=== PATIENT | female | born 1970 | race Caucasian/White ===

== ENCOUNTER 2019-12-10 21:03 | Emergency (ER) | payer OTHER ==
[~2019-12-10] VITALS: Ht 175.3 cm; Wt 56.7 kg
[2019-12-10 21:26] LABS: URINE BILIRUBIN NEGATIVE (Negative); URINE BLOOD NEGATIVE (Negative); URINE CLARITY CLEAR; URINE COLOR YELLOW; URINE GLUCOSE-RANDOM NEGATIVE (Negative); URINE KETONES NEGATIVE (Negative); URINE LEUKOCYTES-REFLEX NEGATIVE (Negative); URINE NITRITE-REFLEX NEGATIVE (Negative); URINE PROTEIN NEGATIVE (Negative); URINE UROBILINOGEN 0.2 E.U./dl (0.2-1.0)
[2019-12-10 21:35] LABS: ABSOLUTE EOSINOPHILS 0.1 thou/uL (0.0-0.7); ABSOLUTE LYMPHOCYTES 1.8 thou/uL (0.8-5.3); ABSOLUTE MONOCYTES 1.3 thou/uL (0.0-1.2); ABSOLUTE NEUTROPHILS 6.9 thou/uL (1.6-8.1); BASOPHILS 0.5 %; HEMATOCRIT 39.5 % (37.0-47.0); HEMOGLOBIN 13.8 gm/dL (12.0-15.0); LYMPHOCYTES 17.9 %; MCH 32.3 pg (26.0-34.0); MCHC 35.1 g/dL (28.0-37.0); MCV 92.2 fL (80.0-100.0); MONOCYTES 13.1 %; MPV 6.7 fl. (7.2-11.1); NUCLEATED RBCS 0 /100WBC; PLATELET COUNT* 282 thou/uL (150-400); POLYS 67.5 %; RBC 4.28 mil/uL (4.20-5.00); WBC 10.2 thou/uL (4.0-11.0)
[2019-12-10 21:41] LABS: CALCIUM 8.5 mg/dL (8.5-10.1); CREATININE 0.9 mg/dL (0.6-1.3); POTASSIUM 3.4 mmol/L (3.5-5.1)
[2019-12-10 21:53] LABS: ALBUMIN 3.4 g/dL (3.4-5.0); TOTAL BILIRUBIN 0.5 mg/dL (<0.1-1.0); TOTAL PROTEIN 7.5 g/dL (6.4-8.2)
[2019-12-10] MEDS ORDERED: IBUPROFEN 800800 M1 PO (23:11)
[2019-12-10] MEDS ORDERED: BACTRIM DS TAB1 EAC1 PO (23:11)
[2019-12-10 23:30] VITALS: BP 126/71
--- NOTE | 2019-12-11 12:42 | EKG ---
[place] [address] ELECTROCARDIOGRAM REPORT Name: FALLON FOX Room: [facility]#: [id number] Admission: 12/10/19 Attend Phys: Discharge: 12/10/19 Date of : 72 Date of Service: 12/10/192120 Report #: [id number] THIS REPORT FOR: //name// [facility] ED Test Date: 2019-12-10 Test Time: 21:21:43 Pat Name: FALLON FOX Department: Room: Gender: F Imaging Assistant: BREEZY : 1970 Requested By: Scottie Kennedy Order Number: [id number] MD: Dajuan Monterroso Measurements Intervals [place] Rate: 101 P: 55 FL: 123 QRS: 89 QRSD: 87 T: 61 QT: 352 QTc: 457 Interpretive Statements Sinus tachycardia Probable left atrial enlargement No previous ECG available for comparison Electronically Signed On 12-11-2019 12:42:48 CDT by Dajuan Monterroso [email or web address] <ELECTRONICALLY SIGNED> By: Dajuan Monterroso MD, [facility] 12/11/19 1242 20 20 Dajuan Monterroso MD, [facility] /EPI
== END 2019-12-10 23:30 | disposition home or self-care (01) ==
LOC: M.ERS 21:03
PROVIDERS: Emergency Medicine Emergency Medical Services
DX: N12 Tubulo-interstitial nephritis, not specified as acute or chronic (principal); F17.210 Nicotine dependence, cigarettes, uncomplicated; Z88.6 Allergy status to analgesic agent